=== PATIENT | female | born 1980 | race Native Hawaiian/Other Pacific Islander ===

== ENCOUNTER 2016-03-04 04:11 | Inpatient (IN) | payer BC, OTHER ==
[~2016-03-04] VITALS: Ht 167.6 cm; Wt 109.3 kg
[2016-03-04] MEDS ORDERED: MINERAL OIL 10 ML VIAL TOPICAL PRN (05:30)
[2016-03-04] MEDS ORDERED: LIDOCAINE HCL 1% 50 ML VIAL INFIL PRN (05:30)
[2016-03-04] MEDS ORDERED: SODIUM CHLORID 0.9% 500 ML INJ 500 ML IV PRN (05:30)
[2016-03-04] MEDS ORDERED: OXYTOCIN 30 UNITS-500ML PREMIX 500 ML IV ONE (05:30)
[2016-03-04] MEDS ORDERED: LIDOCAINE HCL 1% 50 ML VIAL I-DERMAL PRN (05:30)
[2016-03-04] MEDS ORDERED: CITRIC ACID-SODIUM CITRATE LIQ 30 ML UDC PO SCH (05:30)
[2016-03-04] MEDS: SODIUM CHLOR 0.9% 1000 ML INJ 1,000 ML IV SCH ×2 (05:30→09:00)
[2016-03-04] MEDS ORDERED: SODIUM CHLOR 0.9% 1000 ML INJ 1,000 ML IV ONE (05:30)
[2016-03-04] MEDS ORDERED: ONDANSETRON HCL 4 MG/2 ML VIAL IV PRN (05:30)
[2016-03-04] MEDS ORDERED: SODIUM CHLOR 0.9% 1000 ML INJ 1,000 ML IV PRN (05:45)
--- NOTE | 2016-03-04 06:02 | HHI.HP ---
HPI Chief Complaint Contractions Date Seen: Mar 04, 2016 Time Seen: 05:30 Travel History International Travel<30 Days: No Contact w/Intl Traveler<30Days: No Known Affected Area: No History of Present Illness HPI 35-year-old at 38 weeks and 2 days of gestation, EDC 03/16/16, patient presents to labor and delivery complaining of frequent contractions, examination shows patient is alli irregularly, vaginal exam reveals cervix 3 cm dilated, 100% effaced, -2, anterior with bulging membrane. Patient denies leakage of fluids and vaginal bleeding. She reports presence of movements. care is with Dr. Ibarra, course is significant for advanced maternal age, obesity, gestational diabetes on insulin and hypothyroidism. Patient is noted to have increased blood pressure during evaluation, her blood pressure values were 146/72, 166/79, 154/68. However patient denies headaches, blurry vision and epigastric pain. Para: 0 : 1 Miscarriage: 0 : 0 History Past Medical History Narrative Medical Obesity, gestational diabetes on insulin, hypothyroidism Obstetric History Obstetric History Primigravida Past Surgical History Narrative Surgical Status post cholecystectomy 2010 Family History Narrative Family History Mother has history of stroke in 2009, father has diabetes Social History Alcohol Use: No Tobacco Use: No Substance Abuse: No Allergies-Medications (Allergen,Severity, Reaction): Coded Allergies: No Known Allergies (Unverified , 03/04/16) Review of Systems Genitourinary: Other (contractions) Endocrine: Other (gestational diabetes on insulin, hypothyroidism, obesity) Physical Exam Narrative GENERAL: Well-nourished, well-developed patient. SKIN: Warm and dry. HEAD: Normocephalic and atraumatic. EYES: No scleral icterus. No injection or drainage. ENT: No nasal drainage noted. Mucous membranes pink. Airway patent. NECK: Supple, trachea midline. No JVD. CARDIOVASCULAR: Regular rate and rhythm without murmurs, gallops, or rubs. RESPIRATORY: Breath sounds equal bilaterally. No accessory muscle use. BREASTS: Bilateral exam showed no masses , no retractions, no nipple discharge. ABDOMEN/GI: Abdomen soft, gravid, non-tender, bowel sounds present, no rebound, no guarding Gravid to 38 weeks size Fundal Height: 38 cm GENITOURINARY: External Genitalia: intact and normal in appearance BUS glands: Normal Cervix: 3 cm, 100%, -2, anterior, bulging membrane Dilatation: 3 cm Effacement: 100% Station: -2 Presentation: Cephalic Membranes: Intact, bulging membranes Uterine Contractions: Irregular FHT's: Category: one Baseline: 130s Reactive: Yes Variability: Moderate Decels: None EXTREMITIES: No cyanosis or edema. BACK: Nontender without obvious deformity. No CVA tenderness. NEUROLOGICAL: Awake and alert. Motor and sensory grossly within normal limits. Five out of 5 muscle strength in all muscle groups. Normal speech. Data Data Vital Signs Reviewed: Yes Orders Admit To Inpatient (03/04/16 ) Code Status (03/04/16 05:25) Vital Signs (Adult) .Per protocol (03/04/16 05:25) Activity Oob Ad Tracey (03/04/16 05:25) ^ Heart (03/04/16 05:25) ^ Amnioinfusion (03/04/16 05:25) Urinary Catheter Management .ONCE (03/04/16 05:25) Diet Npo (03/04/16 Breakfast) Sodium Chlorid 0.9% 500 Ml Inj (Ns 500 M (03/04/16 05:30) Sodium Chlor 0.9% 1000 Ml Inj (Ns 1000 M (03/04/16 05:45) Lidocaine 1% Inj (50 Ml) (Xylocaine 1% I (03/04/16 05:30) Citric Acid-Sodium Citrate Liq (Bicitra (03/04/16 05:30) Ondansetron Inj (Zofran Inj) (03/04/16 05:30) Fentanyl Inj (Fentanyl Inj) (03/04/16 05:30) Fentanyl Inj (Fentanyl Inj) (03/04/16 05:30) Complete Blood Count With Diff (03/04/16 05:25) Hold Clot (03/04/16 05:25) Abo/Rh Blood Type (03/04/16 05:25) Urinalysis - C+S If Indicated (03/04/16 05:25) Type And Screen (03/04/16 05:25) Resp Oxygen Non Rebreathe Mask (03/04/16 ) ^ Epidural / Intrathecal Infus (03/04/16 05:25) Oxytocin 30 Units-500ml Premix (Pitocin (03/04/16 05:30) Lidocaine 1% Inj (50 Ml) (Xylocaine 1% I (03/04/16 05:30) Light Mineral Oil (Muri-Lube Oil) (03/04/16 05:30) Inpatient Certification (03/04/16 ) Comprehensive Metabolic Panel (03/04/16 05:28) Uric Acid (03/04/16 05:28) Ldh Serum (03/04/16 05:28) Protein Creat Ratio, Random Ur (03/04/16 05:28) Ob (2e) Additional Admit Info (03/04/16 05:29) Bedside Glucose RT.Q2H (03/04/16 05:29) Sodium Chlor 0.9% 1000 Ml Inj (Ns 1000 M (03/04/16 05:30) Sodium Chlor 0.9% 1000 Ml Inj (Ns 1000 M (03/04/16 05:30) Assessment/Plan Problem List: (1) 38 weeks gestation of (2) Gestational diabetes mellitus (3) Hypothyroidism affecting (4) Gestational hypertension Assessment and Plan Term at 38 weeks and 2 days of gestation in labor, reassuring heart status, GBS is negative. 1. Active labor * Admit patient to labor and delivery * Continuous heart monitoring * Monitor progress of labor * Anticipate vaginal delivery * Keep patient nothing by mouth * IV fluid hydration * Sent admission blood work * 2. Gestational diabetes on insulin * Monitor Fingersticks blood glucose * Insulin sliding scale 3. Hypothyroidism * Continue with home medications * 4. Gestational hypertension * Due to increased blood pressure noted during evaluation, will send preeclamptic blood work * Protein creatinine ratio * Continue to Monitor blood pressure * Consider antihypertensive therapy if her blood pressure remains persistently high * Consider magnesium sulfate for seizure prophylaxis if patient is symptomatic( at this time patient denies headaches, blurry vision and epigastric pain) Discharge Planning We will discharge patient to home in 2-3 days after delivery Chris Lambert MD Mar 04, 2016 06:02
[2016-03-04 06:34] LABS: BASOPHIL % 0.2 % (0.0-2.0); EOSINOPHIL % 0.3 % (0.0-4.0); HEMATOCRIT 38.8 % (35.0-46.0); HEMO FLAGS DIFF FINAL; LYMPH % 24.3 % (9.0-44.0); LYMPHOCYTE # 2.2 TH/MM3 (1.0-4.8); MEAN CELL VOLUME 77.5 FL (80.0-100.0); MEAN CORPUSCULAR HGB CONC 33.6 % (32.0-36.0); NEUT % 66.2 % (16.0-70.0); PLATELET COUNT 127 TH/MM3 (150-450); RED BLOOD COUNT 5.01 MIL/MM3 (4.00-5.30); RED CELL DISTRIBUTION WIDTH 14.6 % (11.6-17.2); WHITE BLOOD COUNT 9.1 TH/MM3 (4.0-11.0)
[2016-03-04] MEDS ORDERED: INSU100V2 SQ ×2 (06:34→06:35)
[2016-03-04] MEDS ORDERED: LEVO.1 PO (06:40)
[2016-03-04 06:58] LABS: BACTERIA, URINE OCC /hpf; BLOOD, URINE MOD (NEG); COMMENT (UR) CULT NOT INDICATED; CULTURE IF INDICATED CULT NOT INDICATED; GLUCOSE,URINE NEG (NEG); KETONE, URINE NEG (NEG); MUCUS URINE FEW /lpf (OCC); NITRITE,URINE NEG (NEG); PH, URINE 6.5 (5.0-8.5); SQUAMOUS EPITHELIAL CELL URINE 2 /hpf (0-5); URINE COLOR YELLOW (YELLW/STRAW)
[2016-03-04] MEDS ORDERED: OXYTOCIN 30 UNITS-500ML PREMIX 500 ML IV SCH (07:00)
[2016-03-04 07:02] LABS: ALT (GPT) 14 U/L (10-53); ANION GAP 11 MEQ/L (5-15); AST (GOT) 12 U/L (15-37); BICARBONATE 21.1 MEQ/L (21.0-32.0); BLOOD UREA NITROGEN 12 MG/DL (7-18); CHLORIDE 109 MEQ/L (98-107); GLOMERULAR FILTRATION RATE 153 ML/MIN (>89); POTASSIUM 3.7 MEQ/L (3.5-5.1); SODIUM (NA) 141 MEQ/L (136-145); URIC ACID 4.3 MG/DL (2.6-6.0)
[2016-03-04 07:04] LABS: ALKALINE PHOSPHATASE 246 U/L (45-117); LDH SERUM 139 U/L (84-246); TOTAL BILIRUBIN ADULT 0.2 MG/DL (0.2-1.0)
[2016-03-04] MEDS ORDERED: PREN29TA PO (07:16)
[2016-03-04] MEDS ORDERED: INSU100V3 SQ (07:16)
[2016-03-04] MEDS: DIPHTH/TETANUS/ACEL PERTUSSIS (BOOSTER) 0.5 ML VIAL/PFS IM ONE ×2 (08:00→18:00)
[2016-03-04] MEDS: MEASLES, MUMPS, RUBELLA VACCINE 0.5 ML VIAL SQ ONE (08:00)
[2016-03-04] MEDS ORDERED: NIFEdipine 10 MG CAP ONE (08:07)
[2016-03-04] MEDS ORDERED: fentaNYL 2MCG-BUPIV 0.125% INJ 100 ML ONE (09:36)
[2016-03-04] MEDS ORDERED: NIFEdipine 10 MG CAP PO PRN (09:45)
[2016-03-04] MEDS ORDERED: LABETALOL HCL 100 MG/20 ML VIAL IV PUSH PRN (09:45)
[2016-03-04] MEDS ORDERED: NIFEdipine 20 MG CAP PO PRN ×2 (09:45)
[2016-03-04] MEDS ORDERED: BUPIVACAINE HCL PF 0.25% 10 ML VIAL ONE (09:53)
[2016-03-04] MEDS ORDERED: DO NOT ADMINISTER ANTICOAGULANTS XX PRN (12:00)
[2016-03-04] MEDS ORDERED: fentaNYL 2MCG-BUPIV 0.125% INJ 100 ML EPIDURAL SCH (12:00)
[2016-03-04] MEDS ORDERED: ePHEDrine/NS 50 MG/5 ML SYR IV PRN (12:00)
[2016-03-04] MEDS ORDERED: NO SYSTEM NARCOTICS XX PRN (12:00)
--- NOTE | 2016-03-04 15:17 | PD.OB.DELI ---
Delivery Date: Mar 04, 2016 Anesthesia: Epidural Episiotomy: None Vaginal Delivery: Normal Presentation: Occiput anterior Nuchal Cord: None : Male One Minute : 8 Five Minute : 9 Weight: 2885g Infant Care: Spontaneous crying Placenta: Spontaneous delivery Laceration: Vaginal laceration (periurethral and sulcal) Repair: Chromic interrupted, Chromic running Additional Information ebl 800ml. Vaginal varicosities. Periurethral tear and sulcal tear with 2 visible pulsating bleeding vessels. Interrupted 3-0 chromic used to obtain hemostasis, figure of 8 performed. 2-0 chromic running stich used to repair remainder of laceration Grecia Ramos MD Mar 04, 2016 15:17
[2016-03-04] MEDS ORDERED: IBUPROFEN 600 MG TAB PO PRN (15:30)
[2016-03-04] MEDS ORDERED: BENZOCAINE 20% TOPICAL SPRAY 60 ML CAN TOPICAL PRN (15:30)
[2016-03-04] MEDS ORDERED: ONDANSETRON ODT 4 MG TAB PO PRN (15:30)
[2016-03-04] MEDS ORDERED: WITCH HAZEL 50%/GLYCERIN 12.5% 40 PAD JAR TOPICAL PRN (15:30)
[2016-03-04] MEDS ORDERED: DOCUSATE SODIUM 50 MG/SENNA 8.6 MG TAB PO PRN (15:30)
[2016-03-04] MEDS ORDERED: ZOLPIDEM TARTRATE 5 MG TAB PO PRN (15:30)
[2016-03-04] MEDS ORDERED: ACETAMINOPHEN 325 MG TAB PO PRN (15:30)
[2016-03-04] MEDS ORDERED: SODIUM CHLORIDE 0.9% FLUSH 5 ML FLUSH IV PRN (15:30)
[2016-03-04] MEDS ORDERED: oxyCODONE/ACETAMINOPHEN 5 MG/325 MG TAB PO PRN (15:30)
[2016-03-04] MEDS ORDERED: ALUMINUM/MAGNESIUM/SIMETH 30 ML CUP PO PRN (15:30)
--- NOTE | 2016-03-04 16:37 | HHI.DCPOC ---
Discharge Care Plan Diagnosis: (1) Gestational hypertension (2) Gestational diabetes mellitus (3) Spontaneous vaginal delivery Your Health Problems Are: Vaginal delivery Report Symptoms to Your Doctor -Temperate above 100.5 degrees -Redness, of incision or excessive or foul smelling drainage -Unusual pain or calf pain -Increased vaginal bleeding -Painful or difficulty urinating -Feelings of extreme sadness or anxiety after 2 weeks Goals to Promote Your Health * To prevent worsening of your condition and complications * To maintain your health at the optimal level Directions to Meet Your Goals Take your medications as prescribed Follow your dietary instruction Follow activity as directed Ensure plenty of rest for recovery Drink fluids for hydration Keep your appointments as scheduled Take your immunizations and boosters as scheduled If your symptoms worsen call your PCP, if no PCP go to Urgent Care Center or Emergency Room Smoking is Dangerous to Your Health. Avoid second hand smoke Call the 24-hour crisis hotline for domestic abuse at Grecia Ramos MD Mar 04, 2016 16:36
[2016-03-04] MEDS: INSULIN NovoLIN REGULAR SUPPLEMENTAL SCALE SQ SCH (18:18)
[2016-03-04] MEDS ORDERED: SODIUM CHLORIDE 0.9% FLUSH 5 ML FLUSH IV SCH (21:00)
[2016-03-05] MEDS: LEVOTHYROXINE SODIUM 100 MCG TAB PO SCH (06:33)
--- NOTE | 2016-03-05 07:58 | HHI.OB ---
Subjective Post Day: 1 Remarks Doing well, min vag bleeding Objective Vitals/I&O BP 97/58 Objective Remarks GENERAL: Well-nourished, well-developed patient. CARDIOVASCULAR: Regular rate and rhythm without murmurs, gallops, or rubs. RESPIRATORY: Breath sounds equal bilaterally. No accessory muscle use. ABDOMEN/GI: Abdomen soft, non-tender. Fundus: Firm, non-tender at umbilicus. GENITOURINARY: Light to moderate bleeding. EXTREMITIES: No cyanosis or edema, non-tender, without signs of DVT. Medications and IVs Current Medications Medications (Trade) Dose Ordered Sig/Hilario Route Start Time Stop Time Status Last Admin (NS Flush) 2 ml BID IV 03/04/16 21:00 (NS Flush) 2 ml UNSCH PRN IV 03/04/16 15:30 (Tylenol) 650 mg Q4H PRN PO 03/04/16 15:30 (Motrin) 600 mg Q6H PRN PO 03/04/16 15:30 (Percocet 5-325 Mg) 1 tab Q4H PRN PO 03/04/16 15:30 (Americaine 20% Top Spr) 1 spray Q4H PRN TOPICAL 03/04/16 15:30 (Tucks Pads) 1 applic QID PRN TOPICAL 03/04/16 15:30 (Cesia-Colace) 2 tab Q12H PRN PO 03/04/16 15:30 (Ambien) 5 mg HS PRN PO 03/04/16 15:30 (Mag-Al Plus Susp Liq) 15 ml Q8H PRN PO 03/04/16 15:30 (Zofran Odt) 4 mg Q6H PRN PO 03/04/16 15:30 (NovoLIN R SUPPLEMENTAL SCALE) 1 TIDAC SQ 03/04/16 17:00 03/04/16 18:18 (Synthroid) 100 mcg DAILY@0600 PO 03/05/16 06:00 03/05/16 06:33 Assessment/Plan Problem List: (1) 38 weeks gestation of (2) Gestational diabetes mellitus (3) Hypothyroidism affecting (4) Gestational hypertension Assessment and Plan ppd 1 s/p , periurethral laceration cont routine supportive care pre-e- Normal BP Gestational diabetes on insulin * Monitor Fingersticks blood glucose, has not required insulin. Normal fasting today, if pp normal today, will d/c accucheck. discussed continued low carb diet, exercise and weight loss to derease risk of DM. 2 hr gct at 6 wk. * Insulin sliding scale Hypothyroidism-Continue with home medications Discharge Planning We will discharge patient to home in 2 days after delivery Grecia Ramos MD Mar 05, 2016 07:58
[2016-03-05] MEDS: INSULIN NovoLIN REGULAR SUPPLEMENTAL SCALE SQ SCH ×3 (08:00→21:45)
[2016-03-05] MEDS ORDERED: IBUP-232 PO (10:27)
[2016-03-06] MEDS: LEVOTHYROXINE SODIUM 100 MCG TAB PO SCH (06:05)
--- NOTE | 2016-03-06 07:43 | HHI.OB ---
Subjective Post Day: 2 Remarks s/p FT of male Objective Objective Remarks GENERAL: Well-nourished, well-developed patient. CARDIOVASCULAR: Regular rate and rhythm without murmurs, gallops, or rubs. RESPIRATORY: Breath sounds equal bilaterally. No accessory muscle use. ABDOMEN/GI: Abdomen soft, non-tender. Fundus: Firm, non-tender at umbilicus. GENITOURINARY: Light bleeding. EXTREMITIES: No cyanosis or edema, non-tender, without signs of DVT. Medications and IVs Current Medications Medications (Trade) Dose Ordered Sig/Hilario Route Start Time Stop Time Status Last Admin (NS Flush) 2 ml BID IV 03/04/16 21:00 (NS Flush) 2 ml UNSCH PRN IV 03/04/16 15:30 (Tylenol) 650 mg Q4H PRN PO 03/04/16 15:30 (Motrin) 600 mg Q6H PRN PO 03/04/16 15:30 (Percocet 5-325 Mg) 1 tab Q4H PRN PO 03/04/16 15:30 (Americaine 20% Top Spr) 1 spray Q4H PRN TOPICAL 03/04/16 15:30 (Tucks Pads) 1 applic QID PRN TOPICAL 03/04/16 15:30 (Cesia-Colace) 2 tab Q12H PRN PO 03/04/16 15:30 (Ambien) 5 mg HS PRN PO 03/04/16 15:30 (Mag-Al Plus Susp Liq) 15 ml Q8H PRN PO 03/04/16 15:30 (Zofran Odt) 4 mg Q6H PRN PO 03/04/16 15:30 (NovoLIN R SUPPLEMENTAL SCALE) 1 TIDAC SQ 03/04/16 17:00 03/05/16 21:45 (Synthroid) 100 mcg DAILY@0600 PO 03/05/16 06:00 03/06/16 06:05 Assessment/Plan Problem List: (1) 38 weeks gestation of (2) Gestational diabetes mellitus (3) Hypothyroidism affecting (4) Gestational hypertension Assessment and Plan ppd 2 s/p , periurethral laceration; minimal bleeding, pain well controlled cont routine supportive care; meeting all d/c criteria PreE- no si/sx; normal BP GDM - for 2hr GTT at 6 wk PP visit Hypothyroidism-Continue with home medications d/c to home today Discharge Planning routine, today Anisha Chaidez MD Mar 06, 2016 07:43
[2016-03-06] MEDS: MEASLES, MUMPS, RUBELLA VACCINE 0.5 ML VIAL SQ ONE (11:31)
== END 2016-03-06 12:41 | disposition home or self-care (01) | DRG 775 ==
LOC: HOBED 04:11 → H2EB 05:30 → H1EA 17:31
PROVIDERS: ADMIT Obstetrics & Gynecology; ATTEND Obstetrics & Gynecology
PROC: 0KQM0ZZ Repair Perineum Muscle, Open Approach (ICD-10-PCS; principal; 2016-03-04)
PROC: 10E0XZZ Delivery of Products of Conception, External Approach (ICD-10-PCS; 2016-03-04)
PROC: 0UQMXZZ Repair Vulva, External Approach (ICD-10-PCS; 2016-03-04)
PROC: 3E0R3CZ (ICD-10-PCS; 2016-03-04)
PROC: 00HU33Z Insertion of Infusion Device into Spinal Canal, Percutaneous Approach (ICD-10-PCS; 2016-03-04)
DX: O71.82 Other specified trauma to perineum and vulva (principal); Z37.0 Single live birth; O24.424 Gestational diabetes mellitus in childbirth, insulin controlled; E03.9 Hypothyroidism, unspecified; O99.280 Endocrine, nutritional and metabolic diseases complicating pregnancy, unspecified trimester; O09.529 Supervision of elderly multigravida, unspecified trimester; O99.214 Obesity complicating childbirth; I86.8 Varicose veins of other specified sites; Z3A.38 38 weeks gestation of pregnancy
CPT/HCPCS: 59025; 80053; 81001; 82570; 82948; 83615; 84112; 84156; 84550; 85025; 86850; 86900; 86901; 90707; 99285; J2590; J7030